=== PATIENT | female | born 1970 | race Caucasian/White ===

== ENCOUNTER → 2021-04-17 | Outpatient (REF) | payer OTHER ==
[2021-04-17 13:26] LABS: APPEARANCE, URINE CLEAR (CLEAR); BACTERIA, URINE AUTO 1+ (NEGATIVE); BILIRUBIN, URINE AUTO NEGATIVE (NEGATIVE); BLOOD, URINE BLOOD 1+ (NEGATIVE); COLOR, URINE YELLOW (YELLOW); GLUCOSE, URINE (UA) AUTO NEGATIVE (NEGATIVE); KETONE, URINE AUTO NEGATIVE (NEGATIVE); LEUKOCYTE ESTERASE, URINE AUTO NEGATIVE (NEGATIVE); MUCUS, URINE SMALL (NEGATIVE); NITRITE, URINE AUTO NEGATIVE (NEGATIVE); PROTEIN, URINE AUTO NEGATIVE (NEGATIVE); RBC, URINE AUTO 10 /HPF (0-3); SPECIFIC GRAVITY URINE AUTO 1.021 (1.002-1.035); SQUAMOUS EPITHELIAL CELL UR AU 1 /HPF (0-6); UROBILINOGEN, URINE AUTO 0.2 mg/dL (0.0-2.0); WBC, URINE AUTO 7 /HPF (0-3)
== END ==
LOC: M SMT 12:56
PROVIDERS: ATTEND Nurse Practitioner Women's Health
DX: N39.0 Urinary tract infection, site not specified (principal)

== ENCOUNTER 2021-05-31 06:22 | Day surgery (SDC) | payer OTHER ==
[~2021-05-31] VITALS: Ht 165.1 cm; Wt 74.0 kg
[~2021-05-31 06:22] MED LIST: CITA10TA5; LIDOCAINE 1% MDV 20ML VIAL SQ PRN; LR 1,000 ML IV ONE; LevoFLOXacin IV 500 MG in IV 1 EA IV ONE; METO1TAB33
--- NOTE | 2021-05-31 08:32 | REP ---
INDICATION: KUB BEFORE SDC COMPARISON: None. TECHNIQUE: Supine view of the abdomen and pelvis. FINDINGS: Cannot exclude small left intrarenal calculus. Calcifications in the pelvis likely represent phleboliths. Possible ill-defined calcification in the right mid ureter cannot be excluded. Bowel gas pattern is nonspecific. Prior cholecystectomy. No organomegaly. Skeletal structures are intact. IMPRESSION: Limited evaluation for underlying nephroureterolithiasis. <Electronically signed by Ton Anguiano > 05/31/21 [id number]
[2021-05-31] MEDS ORDERED: MIDAZOLAM INJ 2MG/2ML VIAL (J2250 PER 1MG) As Ordered ONE (08:35)
[2021-05-31] MEDS ORDERED: ETOMIDATE INJ 20MG/10ML VIAL As Ordered ONE (08:35)
[2021-05-31] MEDS ORDERED: propofoL 200 MG/20 ML VIAL As Ordered ONE ×2 (08:35→09:02)
[2021-05-31] MEDS ORDERED: ONDANSETRON 4MG/2ML VIAL As Ordered ONE (08:35)
[2021-05-31] MEDS ORDERED: fentaNYL 100 MCG/2 ML INJECTION (J3010) As Ordered ONE (08:35)
[2021-05-31] MEDS ORDERED: OXYC1TAB23 PO (08:41)
[2021-05-31] MEDS ORDERED: FLOM0.4C39 PO (08:41)
--- NOTE | 2021-05-31 09:36 | RO ---
OPERATIVE NOTE DATE OF OPERATION: 05/31/2021 PREOPERATIVE DIAGNOSIS: Right kidney stone. POSTOPERATIVE DIAGNOSIS: Right ureteral stone. PROCEDURE: Right extracorporeal shock wave lithotripsy. SURGEON: Mikey Oro MD FARE ENFORCEMENT OFFICER: None. ANESTHESIA: MAC. OPERATIVE INDICATIONS: This is a 50-year-old female who was found to have a 7 mm stone of right ureteropelvic junction a few weeks ago. When x-rayed today it looks like the stone is actually in the proximal ureter. She is brought to the operating room today for treatment. DESCRIPTION OF PROCEDURE: The patient was brought to the operating room and MAC anesthesia was administered. Prophylactic antibiotics were infused. She was placed in supine position in preparation for right-sided extracorporeal shock wave lithotripsy. Fluoroscopy and ultrasonography were utilized to monitor stone position and fragmentation throughout the procedure. Shock waves were then delivered to the right-sided proximal ureteral stone ungated. There were no arrhythmias. After 3000 shocks the procedure was concluded. The stone did appear to fragment well. The patient was then awakened from anesthesia and transported to the recovery room in stable condition. ESTIMATED BLOOD LOSS: 0 mL. COMPLICATIONS: None. SPECIMEN: None. PLAN: The patient will follow up in urology clinic in a few weeks with imaging prior to assess for residual stone burden.
[2021-05-31 09:59] VITALS: BP 125/83
== END 2021-05-31 10:02 | disposition home or self-care (01) ==
LOC: M SDC 06:22
PROVIDERS: ATTEND Urology
DX: N20.1 Calculus of ureter (principal); I10 Essential (primary) hypertension; K21.9 Gastro-esophageal reflux disease without esophagitis; F32.9 Major depressive disorder, single episode, unspecified; Z88.0 Allergy status to penicillin; Z79.899 Other long term (current) drug therapy
CPT/HCPCS: 50590; 74018; J1956; J2250; J2405; J3010

== ENCOUNTER → 2021-07-11 | Outpatient (REF) | payer OTHER ==
[~2021-07-11] MED LIST changes: -CITA10TA5; +CITA10TA7; +FLOM0.4C39 PO; -LIDOCAINE 1% MDV 20ML VIAL SQ PRN; -LR 1,000 ML IV ONE; -LevoFLOXacin IV 500 MG in IV 1 EA IV ONE; +OXYC1TAB23 PO
== END ==
LOC: M SMT 12:44
PROVIDERS: ATTEND Nurse Practitioner Women's Health
DX: N20.0 Calculus of kidney (principal)

== ENCOUNTER → 2021-07-11 | Outpatient (REF) | payer OTHER ==
[2021-07-11 13:31] LABS: APPEARANCE, URINE CLEAR (CLEAR); BACTERIA, URINE AUTO NEGATIVE (NEGATIVE); BILIRUBIN, URINE AUTO NEGATIVE (NEGATIVE); BLOOD, URINE BLOOD NEGATIVE (NEGATIVE); COLOR, URINE YELLOW (YELLOW); GLUCOSE, URINE (UA) AUTO NEGATIVE (NEGATIVE); KETONE, URINE AUTO NEGATIVE (NEGATIVE); LEUKOCYTE ESTERASE, URINE AUTO 1+ (NEGATIVE); MUCUS, URINE SMALL (NEGATIVE); NITRITE, URINE AUTO NEGATIVE (NEGATIVE); PROTEIN, URINE AUTO NEGATIVE (NEGATIVE); RBC, URINE AUTO 2 /HPF (0-3); SPECIFIC GRAVITY URINE AUTO 1.023 (1.002-1.035); SQUAMOUS EPITHELIAL CELL UR AU 4 /HPF (0-6); UROBILINOGEN, URINE AUTO 0.2 mg/dL (0.0-2.0); WBC, URINE AUTO 8 /HPF (0-3)
== END ==
LOC: M SMT 12:48
PROVIDERS: ATTEND Nurse Practitioner Women's Health
DX: N20.0 Calculus of kidney (principal)